=== PATIENT | male | born 1965 | race Caucasian/White ===

== ENCOUNTER → 2020-09-10 13:45 | Outpatient (BNVA) | payer OTHER, SELFPAY | PROVIDERS: Visit Provider Surgery | DX: R14.0 Abdominal distension (gaseous) (principal); R10.84 Generalized abdominal pain | CPT/HCPCS: 99202 ==

== ENCOUNTER 2020-09-22 16:56 | Outpatient (REF) | payer OTHER, SELFPAY ==
[2020-09-22 18:34] LABS: Blood Urea Nitrogen 15 mg/dL (9-16); Estimated Glomerular Filt Rate > 60
== END 2020-09-22 16:57 | disposition home or self-care (01) ==
LOC: HO.LAB 16:56
PROVIDERS: Visit Provider Surgery
DX: R10.84 Generalized abdominal pain (principal); R14.0 Abdominal distension (gaseous)
CPT/HCPCS: 36415; 82565; 84520

== ENCOUNTER 2020-09-23 10:33 | Outpatient (REF) | payer OTHER, SELFPAY ==
--- NOTE | ~2020-09-23 | CT_ITS ---
EXAMINATION: CT ABDOMEN AND PELVIS WITH CONTRAST CLINICAL INFORMATION: Abdominal pain COMPARISON: None TECHNIQUE: Multidetector volumetric images were obtained from the superior aspect of the liver through the pubic symphysis following administration 85 mL of Omnipaque 350 intravenous contrast. Sagittal and coronal reformatted images were obtained on the technologist's workstation. Oral contrast: Yes This CT examination was performed using dose optimization techniques as appropriate, variously including the following: *Automated exposure control *Adjustment of mA and/or kV according to patient size (this includes techniques or standardized protocols for targeted exams where dose is matched to indication/reason for exam; i.e. extremities or head) *Use of iterative reconstruction technique DLP: 448 mGy-cm FINDINGS: LUNG BASES: There is subsegmental atelectasis at the left lung base. LIVER, GALLBLADDER, AND BILIARY TREE: The liver is normal in size, shape and attenuation. There are gallstones in the gallbladder. Gallbladder is normal in size. There is mild intra and extrahepatic biliary duct dilatation. The common bile duct measures 1. 1.1 cm. No common bile duct stone is seen. PANCREAS: Unremarkable. SPLEEN: Unremarkable. ADRENAL GLANDS: There is a 1 cm left adrenal nodule. Accurate Hounsfield units are difficult to determine due to small size. The right adrenal gland is normal-appearing. KIDNEYS AND URETERS: There are small bilateral renal cysts. There is a 3 mm stone in the lower pole of the right kidney. BLADDER: Unremarkable. GASTROINTESTINAL TRACT: The small and large bowel are unremarkable. The appendix is unremarkable. ABDOMINAL WALL: No significant hernia is appreciated. LYMPH NODES: Normal. VASCULAR: Unremarkable. PELVIC VISCERA: Unremarkable. OSSEOUS STRUCTURES: There are postsurgical changes at L4-L5. There is multilevel degenerative disc disease. CT/CT abdomen pelvis w con IMPRESSION: Gallstones. Mild intra and extrahepatic biliary duct dilatation. Small nonobstructing right lower pole renal stone. Small bilateral renal cysts. Small left adrenal nodule.
[2020-09-23] MEDS: iohexoL 350 MG/ML 100 ML INFUS..BTL IV (14:15)
== END 2020-09-23 10:34 | disposition home or self-care (01) ==
LOC: HO.CT 10:33
PROVIDERS: Visit Provider Surgery
DX: R10.84 Generalized abdominal pain (principal); R14.0 Abdominal distension (gaseous)
CPT/HCPCS: 74177; Q9967

== ENCOUNTER → 2020-09-24 14:07 | Outpatient (BNVA) | payer OTHER, SELFPAY | PROVIDERS: Visit Provider Surgery | DX: K81.9 Cholecystitis, unspecified (principal) | CPT/HCPCS: 99212 ==

== ENCOUNTER 2020-10-02 10:43 | Outpatient (REF) | payer OTHER, SELFPAY ==
--- NOTE | ~2020-10-02 | US_ITS ---
EXAMINATION: US ABDOMEN LIMITED CLINICAL INFORMATION: Pain, gallstones and mild ductal dilatation on CT. COMPARISON: CT abdomen and pelvis with contrast 09/23/2020 TECHNIQUE: Real-time imaging of the right upper quadrant abdominal viscera. FINDINGS: PANCREAS: The pancreas is normal in size and contour and echogenicity. No pancreatic ductal distention or retroperitoneal effusion. LIVER: There is mild intrahepatic biliary ductal dilatation. The liver is normal in size and smooth in contour and parenchyma uniform in echogenicity. No focal hepatic parenchymal lesion. Doppler shows portal flow towards the liver. GALLBLADDER: Gallbladder has numerous shadowing calculi, nonmineralized on CT. The gallbladder wall is mildly thickened at 4 mm. There is no subserosal edema or visible pericholecystic fluid. Patient is tender in the gallbladder. COMMON BILE DUCT: CBD is enlarged measuring 10 mm in diameter. There are calculi noted in the distal duct overall dimensions 0.5 x 1.2 cm. RIGHT KIDNEY: Normal. No hydronephrosis. The kidney measures 10.9 cm in maximum dimension. There are several small cysts again noted, largest interpolar region 1.0 x 0.9 cm. The nonobstructing lower pole calculus noted on CT is not visualized by ultrasound with certainty. FREE FLUID: None. US/US abdomen limited IMPRESSION: 1. Cholelithiasis and choledocholithiasis with biliary ductal dilatation. 2. Mild gallbladder wall thickening. Tender gallbladder, positive sonographic Coley's sign.
== END 2020-10-02 10:44 | disposition home or self-care (01) ==
LOC: HO.US 10:43
PROVIDERS: Visit Provider Surgery
DX: K81.9 Cholecystitis, unspecified (principal)
CPT/HCPCS: 76705

== ENCOUNTER 2020-10-02 18:17 | Emergency (ER) | payer OTHER, SELFPAY ==
[2020-10-02 18:45] VITALS: BP 153/92; PULSE 69; RESP 18; TEMP 36.5; O2SAT 97; BMI 28.1
[2020-10-02 21:20] VITALS: BP 140/98; PULSE 67; RESP 18; TEMP 36.3; O2SAT 96
--- NOTE | 2020-10-02 21:28 | ED_ITS ---
HPI - Abdominal Pain General Chief Complaint: Abdominal Pain Stated Complaint: ?Gall stones Time Seen by Provider: 10/02/20 21:28 Source: patient Mode of arrival: ambulatory Limitations: no limitations History of Present Illness HPI narrative: Patient upper abdominal pain for months had ultrasound done today which showed gallstones and CBD stone severely enlarged to 10 mm patient was sent here for further evaluation and admission patient had positive Coley sign patient denies any vomiting no fever no chills refusing to stay in the hospital. Just feels belly bloated with nausea MD elicited complaint: abdominal pain Related Data Home Medications Medication Instructions Recorded Confirmed duloxetine 60 mg capsule,delayed 60 mg PO BEDTIME 09/10/20 09/24/20 release trazodone 50 mg tablet 50 mg PO BEDTIME 09/10/20 09/24/20 Allergies Allergy/AdvReac Type Severity Reaction Status Date / Time Sulfa (Sulfonamide Allergy Unknown Unverified 01/09/18 00:00 Antibiotics) sulfamethoxazole Allergy Unknown ITCHING Unverified 02/28/20 17:24 [From BACTRIM] trimethoprim [From BACTRIM] Allergy Unknown ITCHING Unverified 02/28/20 17:24 Review of Systems Review of Systems Constitutional : No Weight loss, No Fever, No Chills ENT/Mouth : No sore throat, No Rhinorrhea Eyes: No Eye Pain, No Swelling Cardiovascular : No Chest Pain, no palpitations Respiratory : No Cough, No Sputum, no shortness of breath Gastrointestinal : + Nausea, No Vomiting, No Diarrhea, + abdominal Pain, no black stools Genitourinary : No Dysuria, No Urinary Frequency Musculoskeletal : No joint pain, No Myalgias, No Joint Swelling Skin : No Skin Lesions, No rash Neuro : No Weakness, No Numbness, No Dizziness, No Headache Psych : No Anxiety/Panic, No Depression Heme/Lymph: No Bruising, No Lymphadenopathy Endocrine : No Polyuria, No Polydipsia All other systems reviewed and are negative Physical Exam Vital Signs: Vital Signs: Last Vital Signs Temp 97.4 F 10/02/20 21:20 Pulse 67 10/02/20 21:20 Resp 18 10/02/20 21:20 BP 140/98 H 10/02/20 21:20 Pulse Ox 96 10/02/20 21:20 Body Mass Index 28.1 Appearance: Alert. Oriented X3. No acute distress. Ambulatory Eyes: Pupils equal, round and reactive to light. ENT: Pharynx normal. Neck: Normal inspection. Neck supple. CVS: Normal heart rate and rhythm. Pulses normal. Respiratory: No respiratory distress. Breath sounds normal. Abdomen: Soft , tenderness right upper quadrant no rebound tenderness or guarding Bowel sounds are present, no mass palpable, no CVA tenderness Skin: Skin warm and dry. Normal skin color. Normal skin turgor. Extremities: No lower extremity edema. No calf tenderness Neuro: Oriented X 3. No motor deficit. No sensory deficit. MDM - Abdominal Pain MDM Narrative Medical decision making narrative: Patient had cholelithiasis normal WBC count slightly elevated LFTs plan was to admit for ERCP in the morning but patient left the ER after labs were done without informing the MD per nurse patient does not want to stay overnight for the procedure will come in the morning as outpatient Lab Data Attestation: I reviewed the patient's lab results. Result diagrams: 10/02/20 22:55 10/02/20 22:55 Labs: Lab Results 10/02/20 10/02/20 10/02/20 Range/Units 22:55 22:55 22:55 WBC 6.9 (4.8-10.8) X10*3/uL RBC 4.89 (4.60-5.80) X10*6/uL Hgb 14.8 (14.0-18.0) g/dl Hct 41.8 L (42-52) % MCV 85.5 (80-98) fL MCH 30.3 (27.0-33.0) pg MCHC 35.4 (31.0-36.0) g/dl RDW 13.8 (11.0-16.0) % Plt Count 200 (160-400) X10*3/uL MPV 9.6 (9.4-12.4) fL Immature Gran % (Auto) 0.1 (0.0-0.4) % Neut % (Auto) 47.5 (45-73) % Lymph % (Auto) 38.3 (20-40) % Power % (Auto) 8.0 (2-11) % Eos % (Auto) 5.4 H (0-4) % Baso % (Auto) 0.7 (0-2) % Lymph # (Auto) 2.6 (1.2-4.9) X10*3/uL Power # (Auto) 0.6 (0.1-1.2) X10*3/uL Eos # (Auto) 0.4 (0.0-0.4) X10*3/uL Baso # (Auto) 0.1 (0.0-0.2) X10*3/uL Abs Immat Gran (auto) 0.01 (0.00-0.03) X10*3/uL Absolute Neuts (auto) 3.3 (2.0-8.3) X10*3/uL Absolute Nucleated RBC 0.000 (0.0-0.012) X10*3/uL Nucleated RBC % (auto) 0.0 (0.0-0.2) /100WBC Sodium 138 (135-145) mmol/L Potassium 4.4 (3.3-5.1) mmol/L Chloride 105 (96-108) mmol/L Carbon Dioxide 25 (22-29) mmol/L Anion Gap 12 (12-20) BUN 17 H (9-16) mg/dL Creatinine 1.05 (0.5-1.4) mg/dL Estim Creat Clear Calc 84.8 Estimated GFR > 60 Random Glucose 94 (60-115) mg/dL Lactic Acid 0.7 (0.5-2.0) mmol/L Calcium 10.1 (8.4-10.2) mg/dL Total Bilirubin 0.7 (0.0-1.0) mg/dL Direct Bilirubin 0.3 (0.0-0.5) mg/dL AST 83 H (5-37) U/L ALT 132 H (0-40) U/L Alkaline Phosphatase 212 H (39-117) U/L Total Protein 7.4 (6.5-8.0) g/dL Albumin 4.0 (3.5-5.0) g/dL Lipase 14 (8-78) U/L Discharge Plan Discharge Patient Disposition: Elopement Prescriptions: No Action duloxetine 60 mg capsule,delayed release(DR/EC) 60 mg PO BEDTIME RF: 0 trazodone 50 mg tablet 50 mg PO BEDTIME RF: 0 Discharge Date/Time: 10/02/20 23:16 [facility] Past Medical History Medical History Arthritis Chronic back pain HIV (human immunodeficiency virus infection) Surgical History H/O bilateral inguinal hernia repair H/O shoulder surgery H/O umbilical hernia repair History of surgery on arm Family History Family History Mother Lung cancer Father Colon cancer Social History Social History Alcohol intake: never Smoking Status: Current every day smoker Advance Directives: No
--- NOTE | 2020-10-02 22:27 | PC.NURSE ---
pt got dressed in his street cloths and is refusing the iv and ivf. teaching not effective pt still refusing. pt states his stomach distenced and semi firm.
[2020-10-02 23:02] LABS: MANUAL DIFF FLAG NO
[2020-10-02 23:03] LABS: Basophils Absolute Auto 0.1 X10*3/uL (0.0-0.2); Basophils Percent Auto 0.7 % (0-2); Eosinophils Absolute Auto 0.4 X10*3/uL (0.0-0.4); Eosinophils Percent Auto 5.4 % (0-4); Hematocrit 41.8 % (42-52); Hemoglobin 14.8 g/dl (14.0-18.0); Imm Gran Abs Auto 0.01 X10*3/uL (0.00-0.03); Imm Gran Pct Auto 0.1 % (0.0-0.4); Lymphocytes Absolute Auto 2.6 X10*3/uL (1.2-4.9); Lymphocytes Percent Auto 38.3 % (20-40); Mean Corpuscular HGB Conc 35.4 g/dl (31.0-36.0); Mean Corpuscular Hemoglobin 30.3 pg (27.0-33.0); Mean Corpuscular Volume 85.5 fL (80-98); Mean Platelet Volume 9.6 fL (9.4-12.4); Monocytes Absolute Auto 0.6 X10*3/uL (0.1-1.2); Neutrophils Absolute Auto 3.3 X10*3/uL (2.0-8.3); Neutrophils Percent Auto 47.5 % (45-73); Platelet Count 200 X10*3/uL (160-400); Red Blood Count 4.89 X10*6/uL (4.60-5.80); Red Cell Distribution Width 13.8 % (11.0-16.0); White Blood Count 6.9 X10*3/uL (4.8-10.8)
--- NOTE | 2020-10-02 23:12 | PC.NURSE ---
pt is very figity, puts his street clothing on. pt states he is not going to stay, pt states he thought he was going to have a procedure done per his doctor. pt witness left on his own steady gait. tried to have the pt wait till his labs and refused, dr khan made aware. pt has been up and down in the bed cant sit still. pt restless.
[2020-10-02 23:20] LABS: Lactic Acid 0.7 mmol/L (0.5-2.0)
[2020-10-02 23:27] LABS: Alanine Aminotransferase 132 U/L (0-40); Alkaline Phosphatase 212 U/L (39-117); Anion Gap 12 (12-20); Aspartate Amino Transferase 83 U/L (5-37); Bilirubin Direct 0.3 mg/dL (0.0-0.5); Bilirubin Total 0.7 mg/dL (0.0-1.0); Blood Urea Nitrogen 17 mg/dL (9-16); Calcium 10.1 mg/dL (8.4-10.2); Carbon Dioxide 25 mmol/L (22-29); Chloride 105 mmol/L (96-108); Creatinine Clr Calc Pharmacy 84.8; Estimated Glomerular Filt Rate > 60; Glucose Random 94 mg/dL (60-115); Lipase 14 U/L (8-78); Potassium 4.4 mmol/L (3.3-5.1); Sodium 138 mmol/L (135-145); Total Protein 7.4 g/dL (6.5-8.0)
[2020-10-02 23:42] LABS: Partial Thromboplastin Time 36.1 SEC (24.1-38.0)
== END 2020-10-02 23:16 | disposition left against medical advice (07) ==
PROVIDERS: Internal Medicine; Emergency Provider Emergency Medicine
DX: K80.63 Calculus of gallbladder and bile duct with acute cholecystitis with obstruction (principal)
CPT/HCPCS: 36415; 80048; 80076; 83605; 83690; 85025; 85610; 85730; 87040; 96360; 99284; 99285

== ENCOUNTER 2020-10-03 11:26 | Inpatient (IN) | payer OTHER, SELFPAY ==
[2020-10-03 11:43] VITALS: BP 139/84; PULSE 80; RESP 16; TEMP 36.8; O2SAT 97; BMI 26.6
--- NOTE | 2020-10-03 12:03 | ECG_ITS ---
Test Reason : ABDOMINAL PAIN Blood Pressure : / mmHG Vent. Rate : 067 BPM Atrial Rate : 067 BPM P-R Int : 154 ms QRS Dur : 096 ms QT Int : 416 ms P-R-T Axes : 047 060 050 degrees QTc Int : 439 ms Normal sinus rhythm Normal ECG No previous ECGs available Referred By: Natalia Cordova Electronically Signed By:JAYCEE BASSETT MD
--- NOTE | 2020-10-03 12:18 | ED_ITS ---
HPI - Abdominal Pain General Chief Complaint: Abdominal Pain Stated Complaint: CBD STONE Time Seen by Provider: 10/03/20 12:02 Source: patient and family Mode of arrival: ambulatory Limitations: no limitations History of Present Illness HPI narrative: 54 y/o male with history of migraines, active smoker, chronic ros k pain s/p fusions, who presents with 3 month history of worsening right upper quadrant pain and abdominal distention. He had an outpatient CT scan on 09/23 which showed gallstones w/ mild intra & extrahepatic biliary duct dilatation. He was called and told to come to the ER for a procedure and was under the impression he would be discharged same day. When he came to the ED yesterday 10/02, US showed gallbladder thickening with cholelithiasis and choledocholithiasis w/ biliary ductal dilatation, CBD measuring 10mm, distal duct stone measuring 0.5 x1.2 cm. He had no fever or leukocytosis. He eloped the ER yesterday because he was not prepared to stay. He comes back with his today with worsening pain and distention. He is unable to sit down and is pacing due to the pain. He admits to subjective fevers at home with episodic diaphoresis. No vomiting but mild nausea. Last good BM 2-3 days ago. MD elicited complaint: abdominal pain Pertinent past history: none Onset (ago): month(s) (3) Pain Consistency: constant Location: RUQ Severity: severe Quality: stabbing and aching Radiation: RLQ Migration to: no migration Exacerbating factors: eating Relieving factors: nothing Associated symptoms: nausea and constipation Related Data Home Medications Medication Instructions Recorded Confirmed duloxetine 60 mg capsule,delayed 60 mg PO BEDTIME 09/10/20 09/24/20 release trazodone 50 mg tablet 50 mg PO BEDTIME 09/10/20 09/24/20 Allergies Allergy/AdvReac Type Severity Reaction Status Date / Time Sulfa (Sulfonamide Allergy Unknown Unverified 01/09/18 00:00 Antibiotics) sulfamethoxazole Allergy Unknown ITCHING Unverified 02/28/20 17:24 [From BACTRIM] trimethoprim [From BACTRIM] Allergy Unknown ITCHING Unverified 02/28/20 17:24 Review of Systems Review of Systems Constitutional: + Fever, No Chills Cardiovascular: No Chest Pain, No SOB, No Orthopnea, No Edema Respiratory: No Cough, No Sputum, No Wheezing, No dyspnea Gastrointestinal: + Nausea, No Vomiting, No Diarrhea, + abdominal Pain, No Hematochezia, No Melena Genitourinary: No Dysuria, No Urinary Frequency, No Hematuria Musculoskeletal: No joint pain, No Myalgias Skin: No Skin Lesions, No rash Neuro: No Weakness, No Numbness, No Dizziness, No Headache Psych: No Anxiety/Panic, No Depression Heme/Lymph: No Bruising, No Lymphadenopathy Endocrine: No Polyuria, No Polydipsia Physical Exam Vital Signs: Vital Signs: Last Vital Signs Temp 98.2 F 10/03/20 15:39 Pulse 60 10/03/20 15:39 Resp 18 10/03/20 15:39 BP 136/86 10/03/20 15:39 Pulse Ox 95 10/03/20 15:39 Body Mass Index 26.6 Appearance: Alert. Oriented X3. No acute distress. Eyes: Pupils equal, round and reactive to light. ENT: Pharynx normal. Neck: Normal inspection. Neck supple. CVS: Normal heart rate and rhythm. Pulses normal. Respiratory: No respiratory distress. Breath sounds normal. Abdomen: distended, somewhat firm with +RUQ tenderness with rebound and guarding, hypoactive bowel sounds x4 Skin: Skin warm and dry. Normal skin color. Normal skin turgor. No rashes. Extremities: No lower extremity edema. Neuro: Oriented X 3. No motor deficit. No sensory deficit. Limping gait due to pain Course Course Course Narrative: 54 y/o male presenting with cholecysitis with choledocholithia sis. Afebrile and hemodynamically stable on arrival. Will repeat labs from yesterday to trend, give Zosyn, IVF and dilaudid for pain. Not septic at this time. GI and Surgery paged on arrival. Reevaluation(s) Reevaluation #1: Pain improved with dilaudid. No leukocytosis. LFTs trending up but bilirubins remain normal. No evidence of cholangitis at this time. Cultures sent. Will hold off on repeat U/S. Spoke with GI and Surgery - recommending ERCP and admission to medicine team. TT medicine who will admit. Reevaluation #2: Medicine to admit Consultations Consultation #1: General Surgery - Dr. Oneill - recommending cholecystectomy after stone removed, residual stones in gallbladder, doubts acute cholecystitis, wall thickening due to stone Consultation #2: GI - Dr. Chang - recommending non-emergent ERCP for stone removal/stent MDM - Abdominal Pain Lab Data Attestation: I reviewed the patient's lab results. Result diagrams: 10/03/20 13:02 10/03/20 13:02 Labs: Lab Results 10/03/20 10/03/20 10/03/20 Range/Units 13:02 13:02 13:02 WBC 7.5 (4.8-10.8) X10*3/uL RBC 4.80 (4.60-5.80) X10*6/uL Hgb 14.5 (14.0-18.0) g/dl Hct 41.2 L (42-52) % MCV 85.8 (80-98) fL MCH 30.2 (27.0-33.0) pg MCHC 35.2 (31.0-36.0) g/dl RDW 13.8 (11.0-16.0) % Plt Count 220 (160-400) X10*3/uL MPV 9.5 (9.4-12.4) fL Immature Gran % (Auto) 0.3 (0.0-0.4) % Neut % (Auto) 75.9 H (45-73) % Lymph % (Auto) 16.6 L (20-40) % [place] % (Auto) 5.1 (2-11) % Eos % (Auto) 1.6 (0-4) % Baso % (Auto) 0.5 (0-2) % Lymph # (Auto) 1.2 (1.2-4.9) X10*3/uL [place] # (Auto) 0.4 (0.1-1.2) X10*3/uL Eos # (Auto) 0.1 (0.0-0.4) X10*3/uL Baso # (Auto) 0.0 (0.0-0.2) X10*3/uL Abs Immat Gran (auto) 0.02 (0.00-0.03) X10*3/uL Absolute Neuts (auto) 5.7 (2.0-8.3) X10*3/uL Absolute Nucleated RBC 0.000 (0.0-0.012) X10*3/uL Nucleated RBC % (auto) 0.0 (0.0-0.2) /100WBC PT 12.5 (10.8-13.0) SEC INR 1.1 (0.9-1.1) APTT 35.7 (24.1-38.0) SEC Sodium 136 (135-145) mmol/L Potassium 4.4 (3.3-5.1) mmol/L Chloride 103 (96-108) mmol/L Carbon Dioxide 24 (22-29) mmol/L Anion Gap 13 (12-20) BUN 19 H (9-16) mg/dL Creatinine 0.94 (0.5-1.4) mg/dL Estim Creat Clear Calc 86.9 Estimated GFR > 60 Random Glucose 115 (60-115) mg/dL Lactic Acid (0.5-2.0) mmol/L Calcium 10.3 H (8.4-10.2) mg/dL Magnesium 2.1 (1.6-2.6) mg/dL Total Bilirubin 1.0 (0.0-1.0) mg/dL Direct Bilirubin 0.3 (0.0-0.5) mg/dL AST 98 H (5-37) U/L ALT 147 H (0-40) U/L Alkaline Phosphatase 250 H (39-117) U/L Total Protein 7.7 (6.5-8.0) g/dL Albumin 4.1 (3.5-5.0) g/dL Lipase 11 (8-78) U/L COVID-19 ([facility]) (Negative) COVID-19 Clin Com 10/03/20 10/03/20 Range/Units 13:02 13:02 WBC (4.8-10.8) X10*3/uL RBC (4.60-5.80) X10*6/uL Hgb (14.0-18.0) g/dl Hct (42-52) % MCV (80-98) fL MCH (27.0-33.0) pg MCHC (31.0-36.0) g/dl RDW (11.0-16.0) % Plt Count (160-400) X10*3/uL MPV (9.4-12.4) fL Immature Gran % (Auto) (0.0-0.4) % Neut % (Auto) (45-73) % Lymph % (Auto) (20-40) % [place] % (Auto) (2-11) % Eos % (Auto) (0-4) % Baso % (Auto) (0-2) % Lymph # (Auto) (1.2-4.9) X10*3/uL [place] # (Auto) (0.1-1.2) X10*3/uL Eos # (Auto) (0.0-0.4) X10*3/uL Baso # (Auto) (0.0-0.2) X10*3/uL Abs Immat Gran (auto) (0.00-0.03) X10*3/uL Absolute Neuts (auto) (2.0-8.3) X10*3/uL Absolute Nucleated RBC (0.0-0.012) X10*3/uL Nucleated RBC % (auto) (0.0-0.2) /100WBC PT (10.8-13.0) SEC INR (0.9-1.1) APTT (24.1-38.0) SEC Sodium (135-145) mmol/L Potassium (3.3-5.1) mmol/L Chloride (96-108) mmol/L Carbon Dioxide (22-29) mmol/L Anion Gap (12-20) BUN (9-16) mg/dL Creatinine (0.5-1.4) mg/dL Estim Creat Clear Calc Estimated GFR Random Glucose (60-115) mg/dL Lactic Acid 0.8 (0.5-2.0) mmol/L Calcium (8.4-10.2) mg/dL Magnesium (1.6-2.6) mg/dL Total Bilirubin (0.0-1.0) mg/dL Direct Bilirubin (0.0-0.5) mg/dL AST (5-37) U/L ALT (0-40) U/L Alkaline Phosphatase (39-117) U/L Total Protein (6.5-8.0) g/dL Albumin (3.5-5.0) g/dL Lipase (8-78) U/L COVID-19 ([facility]) Negative (Negative) COVID-19 Clin Com See Note ECG Data Attestation: I personally reviewed and interpreted this ECG as follows: ECG interpretation date: 10/03/20 ECG interpretation time: 14:00 Interpretation: normal sinus rhythm, HR 67 bpm, normal IN interval, normal QTc, No ST segment elevations or depressions Discharge Plan Discharge Clinical Impression: Choledocholithiasis with acute cholecystitis Patient Disposition: Admitted As Inpatient [facility] Past Medical History Attestation statement: The following information was validated with the patient. Medical History Arthritis Chronic back pain HIV (human immunodeficiency virus infection) Surgical History H/O bilateral inguinal hernia repair H/O shoulder surgery H/O umbilical hernia repair History of surgery on arm Family History Family History Mother Lung cancer Father Colon cancer Social History Social History Alcohol intake: never Smoking Status: Current every day smoker Advance Directives: Yes Advance Directives Information Provided: No Advance Directives on File: No
[2020-10-03] MEDS: HYDROmorphone HCl 0.5 MG/0.5 ML SYRINGE IVPUSH ×2 (13:18→19:11)
[2020-10-03] MEDS: Piperacillin Sodium/Tazobactam 3.375 GM in 0.9 % Sodium Chloride 50 ML IV (13:18)
[2020-10-03] MEDS: 0.9 % Sodium Chloride 1,000 ML 999 ML IVCONT (13:19)
[2020-10-03 13:40] LABS: MANUAL DIFF FLAG NO
[2020-10-03 13:42] LABS: Basophils Percent Auto 0.5 % (0-2); Eosinophils Absolute Auto 0.1 X10*3/uL (0.0-0.4); Eosinophils Percent Auto 1.6 % (0-4); Hematocrit 41.2 % (42-52); Hemoglobin 14.5 g/dl (14.0-18.0); Imm Gran Abs Auto 0.02 X10*3/uL (0.00-0.03); Imm Gran Pct Auto 0.3 % (0.0-0.4); Lymphocytes Absolute Auto 1.2 X10*3/uL (1.2-4.9); Lymphocytes Percent Auto 16.6 % (20-40); Mean Corpuscular HGB Conc 35.2 g/dl (31.0-36.0); Mean Corpuscular Hemoglobin 30.2 pg (27.0-33.0); Mean Corpuscular Volume 85.8 fL (80-98); Mean Platelet Volume 9.5 fL (9.4-12.4); Monocytes Absolute Auto 0.4 X10*3/uL (0.1-1.2); Monocytes Percent Auto 5.1 % (2-11); Neutrophils Absolute Auto 5.7 X10*3/uL (2.0-8.3); Neutrophils Percent Auto 75.9 % (45-73); Platelet Count 220 X10*3/uL (160-400); Red Cell Distribution Width 13.8 % (11.0-16.0); White Blood Count 7.5 X10*3/uL (4.8-10.8)
[2020-10-03 13:48] LABS: INTERNATIONAL NORM RATIO 1.1 (0.9-1.1); Prothrombin Time 12.5 SEC (10.8-13.0)
[2020-10-03 13:49] LABS: COVID-19 Test Negative (Negative)
[2020-10-03 13:51] LABS: Partial Thromboplastin Time 35.7 SEC (24.1-38.0)
[2020-10-03 13:56] LABS: Lactic Acid 0.8 mmol/L (0.5-2.0)
[2020-10-03 14:14] LABS: Alanine Aminotransferase 147 U/L (0-40); Albumin Level 4.1 g/dL (3.5-5.0); Alkaline Phosphatase 250 U/L (39-117); Anion Gap 13 (12-20); Aspartate Amino Transferase 98 U/L (5-37); Bilirubin Direct 0.3 mg/dL (0.0-0.5); Blood Urea Nitrogen 19 mg/dL (9-16); Calcium 10.3 mg/dL (8.4-10.2); Carbon Dioxide 24 mmol/L (22-29); Chloride 103 mmol/L (96-108); Creatinine Clr Calc Pharmacy 86.9; Estimated Glomerular Filt Rate > 60; Glucose Random 115 mg/dL (60-115); Magnesium 2.1 mg/dL (1.6-2.6); Potassium 4.4 mmol/L (3.3-5.1); Sodium 136 mmol/L (135-145); Total Protein 7.7 g/dL (6.5-8.0)
[2020-10-03 14:27] LABS: Lipase 11 U/L (8-78)
[2020-10-03 15:39] VITALS: BP 136/86; PULSE 60; RESP 18; TEMP 36.8; O2SAT 95
[2020-10-03 16:42] LABS: Glucose Urine UA NEG (NEG); Leukocyte Esterase Urine NEG (NEG); Nitrite Urine NEG (NEG); PH 6.5 (5.0-8.0); Specific Gravity - Urine 1.015 (1.005-1.025); Urine Blood NEG (NEG); Urine Ketones NEG (NEG); Urine Protein NEG (NEG-TRACE)
[2020-10-03 16:43] LABS: Appearance Urine CLEAR; Color Urine YELLOW
--- NOTE | 2020-10-03 16:49 | P.CONGS_ITS ---
History of Present Illness Consult details Consult date: 10/03/20 Reason for consult: gallstones Requesting physician: Natalia Cordova Narrative: This is a 54-year-old gentleman with a history of chronic back pain status post lumbar fusion and bilateral sciatica who has been having abdominal distention and bloating for the past 3-6 months. He reports the pain and discomfort got worse over the past month. Patient called the general surgeon's office here at [facility] where he had a bilateral inguinal hernia repair years ago with Dr. Kirkpatrick. Patient thought he had a problem with his hernia and was sent to see Dr. Dempsey regarding his abdominal bloating. Patient was scheduled for a CT scan abdomen and pelvis which she had about a week ago which showed several gallstones. The patient was then scheduled for a ultrasound of the gallbladder which was performed within the past week and then he got a call yesterday from the general surgeon office that he needed to come to the emergency department because he had stones in his bile duct. Patient reports he occasionally will have a pressure in the right upper quadrant and sometimes a sharp discomfort that is intermittent. He denies any association with anything in particular that causes this discomfort. Patient denies nausea or vomiting but reports some evidence of anorexia recently. He has also had constipation associated with this. I have reviewed the patient's CT scan abdomen pelvis and the ultrasound of the right upper quadrant. The ultrasound showed mild intrahepatic duct dilation as well as the common bile duct that was dilated with at least a few stones in the common bile duct. There were multiple small stones within the gallbladder a relatively normal gallbladder wall without any evidence of pericholecystic fluid. Patient had blood work when he came to the emergency department last night that showed a slightly elevated AST and ALT with normal bilirubins. Patient also had a normal white blood cell count. The patient left the emergency department AMA when he found out that he was going to be admitted for likely ERCP. Patient came back to the emergency department today when he had worsening abdominal discomfort. He had repeat laboratory values today that were relatively the same as last evening laboratory values. A consultation was obtained from Gastroenterology in the plan is to perform an ERCP likely tomorrow given that the patient does not have any signs or symptoms of cholangitis. I was consulted regarding multiple stones in the gallbladder. Patient does not have any symptoms of cholecystitis and there is no evidence of cholecystitis on any of the studies that were done. Patient currently denies any abdominal pain and really complains more of back pain and bilateral sciatica as well as hip pain. He denies any fever, chills. He does report that he has some limitation of taking a deep breath as his abdomen is distended. Patient denies chest pain. Review of Systems Review of Systems: Yes all other systems are reviewed and are negative Constitutional: Constitutional: Denies chills, Denies daytime sleepiness, Denies difficulty sleeping, Denies excessive sweating, Reports fatigue, Denies fever(s), Denies headache(s), Reports night sweats, Denies snoring, Denies stops breathing during sleep and Denies weakness Eyes: Eyes: Denies blurry vision, Denies other visual disturbances and Denies requires corrective lenses ENT: Denies bleeding gums, Denies dysphagia, Denies dizziness, Denies headache(s), Denies hearing loss, Denies sinus pain and Denies sore throat Cardiovascular: Cardiovascular: Denies chest pain, Denies chest pain at rest, Denies chest pain with activity, Denies syncope, Denies irregular heart rhythm, Denies leg edema, Denies lightheadedness, Reports dyspnea, Reports dyspnea on exertion and Denies orthopnea Respiratory: Respiratory: Denies chest congestion, Denies cough, Reports dyspnea, Reports dyspnea on exertion, Denies snoring and Denies wheezing Gastrointestinal: Gastrointestinal: Denies abdominal pain, Denies melena, Rep orts bloating, Reports constipation, Denies dysphagia, Reports early satiety, Denies heartburn, Denies diarrhea, Denies nausea and Denies vomiting Genitourinary: Genitourinary: Denies hematuria, Denies difficulty urinating and Denies nocturia Musculoskeletal: Musculoskeletal: Denies abnormal gait, Reports back pain, Denies deformity, Reports arthralgias, Denies joint swelling, Reports radiating pain into limb (Bilateral lower extremity sciatica) and Reports stiffness Integumentary/Breasts: Skin/Breast: Denies breast pain, Denies breast mass and Denies nipple discharge Neurologic: Denies abnormal gait, Denies dizziness, Denies syncope, Denies headache(s), Denies seizure-like activity and Denies weakness Psychiatric: Psychiatric: Denies abnormal sleep pattern, Denies anxiety, Denies depression and Denies panic attacks Endocrine: Endocrine: Denies excessive sweating, Reports fatigue, Denies heat intolerance, Denies polyphagia, Denies polydipsia and Denies polyuria Hematologic/Lymphatic: Hematologic/Lymphatic: Denies easy bleeding and Denies easy bruising Allergic/Immunologic: Allergic/Immunologic: Denies wheezing PMFSH Past Medical History Medical History (Updated 10/03/20 @ 17:00 by Yolette Oneill MD) Anxiety Arthritis Chronic back pain HIV (human immunodeficiency virus infection) Insomnia Sciatica Family History Family History Mother Lung cancer Father Colon cancer Brother No problems noted. Surgical History Surgical History H/O bilateral inguinal hernia repair H/O shoulder surgery H/O umbilical hernia repair History of lumbar fusion History of surgery on arm Social History Social History (Updated 10/03/20 @ 17:01 by Yolette Oneill MD) Alcohol intake: never Smoking Status: Current every day smoker Packs Per Day: 0.5 Years Smoked: 35 Use of substances other than those prescribed or required for medical reasons: Yes Substance Use Type: Marijuana Substance Use Type Other:: Smokes marijuana and uses edibles Substance Use Frequency: Daily Advance Directives: Yes Advance Directives Information Provided: No Advance Directives on File: No Meds Allergies Allergy/AdvReac Type Severity Reaction Status Date / Time Sulfa (Sulfonamide Allergy Unknown Itching Unverified 10/03/20 17:02 Antibiotics) sulfamethoxazole Allergy Unknown ITCHING Unverified 10/03/20 17:02 [From BACTRIM] trimethoprim [From BACTRIM] Allergy Unknown ITCHING Unverified 10/03/20 17:02 Home Medications Medication Instructions Recorded Confirmed Last Taken Type duloxetine 60 mg capsule,delayed 60 mg PO BEDTIME 09/10/20 09/24/20 Unknown History release trazodone 50 mg tablet 50 mg PO BEDTIME 09/10/20 09/24/20 Unknown History Physical Exam Vital Signs: Vital Signs: Last Vital Signs Temp 98.2 F 10/03/20 15:39 Pulse 60 10/03/20 15:39 Resp 18 10/03/20 15:39 BP 136/86 10/03/20 15:39 Pulse Ox 95 10/03/20 15:39 Body Mass Index 26.6 Const: General: cooperative, healthy appearing, comfortable and no acute distress Orientation/consciousness: patient oriented x3 HENMT: Head: Yes normal to inspection, Yes normocephalic and Yes atraumatic Ears: hearing grossly normal bilaterally Mouth: Normal oral and palatal mucosa present Throat: Yes posterior oropharynx normal Eyes: General: appearance normal, both eyes and all related structures Sclerae: sclerae normal EOM: EOMs intact bilaterally Neck: Neck: Yes normal visual inspection, Yes full ROM, Yes no lymphadenopathy and Yes trachea midline Thyroid: Thyroid normal Resp: Effort & Inspection: normal respiratory effort, no audible wheezes and no cough Auscultation: clear to auscultation bilaterally Cardio: Heart sounds: S1 normal heart sound present, S2 normal heart sound present, no click, no gallops and no murmurs GI: Inspection: Yes normal to inspection, No Abdominal wall edema and Yes dist ended (Softly) Palpation (GI): Soft to palpation, nontender, no guarding and not rigid Neuro: General: patient oriented x3 Cranial nerves: Yes CN's II-XII intact bilaterally Extrem: General: Yes normal to inspection, Yes full ROM, Yes no clubbing, cyanosis or edema and Yes no calf tenderness Psych: Appearance: grossly normal Mental Status: mental status grossly normal Results Labs Result diagrams: 10/03/20 13:02 10/03/20 13:02 Labs: Abnormal lab results 10/03/20 10/03/20 Range/Units 13:02 13:02 Hct 41.2 L (42-52) % Neut % (Auto) 75.9 H (45-73) % Lymph % (Auto) 16.6 L (20-40) % BUN 19 H (9-16) mg/dL Calcium 10.3 H (8.4-10.2) mg/dL AST 98 H (5-37) U/L ALT 147 H (0-40) U/L Alkaline Phosphatase 250 H (39-117) U/L Short CBC 10/03/20 Range/Units 13:02 WBC 7.5 (4.8-10.8) X10*3/uL Hgb 14.5 (14.0-18.0) g/dl Hct 41.2 L (42-52) % Plt Count 220 (160-400) X10*3/uL [facility] 10/03/20 13:02 Sodium 136 Potassium 4.4 Chloride 103 Carbon Dioxide 24 BUN 19 H Creatinine 0.94 Calcium 10.3 H Liver Function 10/03/20 Range/Units 13:02 Total Bilirubin 1.0 (0.0-1.0) mg/dL Direct Bilirubin 0.3 (0.0-0.5) mg/dL AST 98 H (5-37) U/L ALT 147 H (0-40) U/L Alkaline Phosphatase 250 H (39-117) U/L Albumin 4.1 (3.5-5.0) g/dL Urine 10/03/20 Range/Units 16:33 Urine Color YELLOW Urine Appearance CLEAR Urine pH 6.5 (5.0-8.0) Ur Specific [place] 1.015 (1.005-1.025) Urine Protein NEG (NEG-TRACE) MG/DL Urine Glucose (UA) NEG (NEG) MG/DL All other labs normal. CT scan abdomen and pelvis: CT/CT abdomen pelvis w con IMPRESSION: Gallstones. Mild intra and extrahepatic biliary duct dilatation. Small nonobstructing right lower pole renal stone. Small bilateral renal cysts. Small left adrenal nodule. Dictated By:RENO CARRERA MDSigned By:<Electronically signed by RENO CARRERA MD in OV>09/23/20 1428 Right upper quadrant ultrasound IMPRESSION: 1. Cholelithiasis and choledocholithiasis with biliary ductal dilatation. 2. Mild gallbladder wall thickening. Tender gallbladder, positive sonographic Coley's sign. Dictated By:GUEVARA HUITRON MDSigned By:<Electronically signed by GUEVARA HUITRON MD in OV> Assessment and Plan (1) Cholelithiasis: Status: Acute (2) Choledocholithiasis: Status: Acute This is a 54-year-old gentleman who has multiple gallstones within the gallbladder and now evidence of choledocholithiasis causing intra and extrahepatic duct dilation. Patient does not have any symptoms of cholangitis at this time and bilirubins remain normal. Patient also has a normal white blood cell count. Given the choledocholithiasis seen on CT scan of the abdomen and pelvis and the ultrasound the right upper quadrant patient will be admitted to the Medicine Service and there will be a plan for ERCP to clear the common bile duct. I will plan to perform a laparoscopic cholecystectomy following clearance of the common bile duct by the police patrol officer. I discussed this w ith the patient and he agrees to proceed with laparoscopic cholecystectomy. I spent about 60 minutes with this patient performing the history and physical examination reviewing both the ultrasound and CAT scan and all laboratory values and documenting.
--- NOTE | 2020-10-03 17:05 | PM.IMHP ---
History of Present Illness Date of Service: 10/03/20 Chief Complaint: Abdominal pain 54-year-old male with history of abdominal pain and has been evaluated by surgery on outpatient basis on around September [address] Dempsey in the office a CAT scan of the abdomen was performed at a time and I thought that the patient had a biliary disease and an ultrasound was subsequently arranged. Patient had ultrasound done on October 02 which showed a dilated common bile duct and the finding consistent with acute choledocholithiasis, and report of posiitive Coley but has no fever, no increase in WBC. He was advised admission however he left AMA. Only to come back today with increasing abdominal pain that is moderate to severe, generally in region of RUQ . He does not have fever or chill no signs of cholangitis. He had he has been admitted for further evaluation including the need for ERCP and probable cholecystectomy. He is nontoxic at this time Review of Systems Review of Systems: Gen: no fever Resp: no sob, no cough CV: no chest, no BARAJAS, no leg edema GI: No n/v, no abd pain Neuro: No confusion [facility] Medical History Anxiety Arthritis Chronic back pain HIV (human immunodeficiency virus infection) Insomnia Sciatica Family History Mother Lung cancer Father Colon cancer Brother No problems noted. Surgical History H/O bilateral inguinal hernia repair H/O shoulder surgery H/O umbilical hernia repair History of lumbar fusion History of surgery on arm Social History Household Members: Significant Other Housing: House Do you presently have visiting nurse or other home services: No Alcohol intake: never Smoking Status: Current every day smoker Tobacco Type: Cigarette Packs Per Day: 0.5 Years Smoked: 35 Smoked in Last 30 Days: Yes Patient Interested in Nicotine Replacement: No Patient Given Instructions on How to Stop Smoking: Yes Date Education Initiated: 10/03/20 Second Hand Smoke Exposure: No Use of substances other than those prescribed or required for medical reasons: No Substance Use Type: Marijuana Substance Use Type Other:: Smokes marijuana and uses edibles Substance Use Frequency: Daily Currently Displaying Signs/Symptoms of Drug Intoxication Withdrawal: No Have you been hit, kicked, punched, or otherwise hurt by someone within the past year? If so, by whom?: No Do you feel safe in your current relationship?: Yes Is there a partner from a previous relationship who is making you feel unsafe now?: No Are you made to feel afraid or neglected: No Advance Directives: Yes Advance Directives Information Provided: No Advance Directives on File: No Advance Directives Date on File: 10/03/20 Do you have thoughts of harming others: None Do you have a plan to hurt others: No Plan Recently lost weight without trying: No Meds Allergies Allergy/AdvReac Type Severity Reaction Status Date / Time Sulfa (Sulfonamide Allergy Unknown Itching Unverified 10/03/20 17:02 Antibiotics) sulfamethoxazole Allergy Unknown ITCHING Unverified 10/03/20 17:02 [From BACTRIM] trimethoprim [From BACTRIM] Allergy Unknown ITCHING Unverified 10/03/20 17:02 Active Medications: Current Medications Generic Name Dose Route Start Last Admin Trade Name Freq PRN Reason Stop Dose Admin Enoxaparin Sodium 40 mg 10/03/20 17:00 Enoxaparin Sodium 40 Mg/0.4 Ml Syringe SUBCUT Q24H [facility] Sodium Chloride 3 ml 10/04/20 00:00 0.9 % Sodium Chloride Flush 3 Ml Syringe IVFLUSH QSHIFT [facility] Home Medications Medication Instructions Recorded Confirmed Last Taken Type duloxetine 60 mg capsule,delayed 60 mg PO BEDTIME 09/10/20 10/03/20 Unknown History release Physical Exam Vital Signs and Narrative: Vital Signs: Last Vital Signs Temp 98.2 F 10/03/20 15:39 Pulse 60 10/03/20 15:39 Resp 18 10/03/20 15:39 BP 136/86 10/03/20 15:39 Pulse Ox 95 10/03/20 15:39 Body Mass Index 26.6 Constitutional Awake and Alert, No apparent distress Neck Supple, No lymphadenopathy Cardiovascular RRR, No M/R/G, S1 S2, No S3 S4, No pedal edema Respiratory Lungs clear, No respiratory distress Gastrointestinal Non tender, Non-distended Skin No rash Neurological Alert & oriented x3 Psychological Appropriate affect Results Labs CBC and Chem 7: 10/03/20 13:02 10/03/20 13:02 Labs: Laboratory Results - last 24 hr 10/03/20 10/03/20 10/03/20 13:02 13:02 13:02 MCV 85.8 MCH 30.2 MCHC 35.2 RDW 13.8 Plt Count 220 MPV 9.5 Immature Gran % (Auto) 0.3 Neut % (Auto) 75.9 H Lymph % (Auto) 16.6 L Leslie % (Auto) 5.1 Eos % (Auto) 1.6 Baso % (Auto) 0.5 Lymph # (Auto) 1.2 Leslie # (Auto) 0.4 Eos # (Auto) 0.1 Baso # (Auto) 0.0 Abs Immat Gran (auto) 0.02 Absolute Neuts (auto) 5.7 Absolute Nucleated RBC 0.000 Nucleated RBC % (auto) 0.0 PT 12.5 INR 1.1 APTT 35.7 Anion Gap 13 Estim Creat Clear Calc 86.9 Estimated GFR > 60 Random Glucose 115 Lactic Acid Calcium 10.3 H Magnesium 2.1 Total Bilirubin 1.0 Direct Bilirubin 0.3 AST 98 H ALT 147 H Alkaline Phosphatase 250 H Total Protein 7.7 Albumin 4.1 Lipase 11 Urine Color Urine Appearance Urine pH Ur Specific [place] Urine Protein Urine Glucose (UA) Urine Ketones Urine Blood Urine Nitrite Ur Leukocyte Esterase COVID-19 ([facility]) COVID-19 Clin Com 10/03/20 10/03/20 10/03/20 13:02 13:02 16:33 MCV MCH MCHC RDW Plt Count MPV Immature Gran % (Auto) Neut % (Auto) Lymph % (Auto) Leslie % (Auto) Eos % (Auto) Baso % (Auto) Lymph # (Auto) Leslie # (Auto) Eos # (Auto) Baso # (Auto) Abs Immat Gran (auto) Absolute Neuts (auto) Absolute Nucleated RBC Nucleated RBC % (auto) PT INR APTT Anion Gap Estim Creat Clear Calc Estimated GFR Random Glucose Lactic Acid 0.8 Calcium Magnesium Total Bilirubin Direct Bilirubin AST ALT Alkaline Phosphatase Total Protein Albumin Lipase Urine Color YELLOW Urine Appearance CLEAR Urine pH 6.5 Ur Specific [place] 1.015 Urine Protein NEG Urine Glucose (UA) NEG Urine Ketones NEG Urine Blood NEG Urine Nitrite NEG Ur Leukocyte Esterase NEG COVID-19 ([facility]) Negative COVID-19 Clin Com See Note Assessment and Plan (1) Diffuse abdominal pain: Status: Acute (2) Choledocholithiasis: Status: Acute 54-year-old male with acute choledocholithiasis, and no clinical evidence of acute cholecystitis of cholangitis -Surgery and GI consult for probably ERCP and Cholelithiasis -Morphine for pain -Empric Levaquin -IVF
[2020-10-03 17:43] VITALS: BP 136/88; PULSE 58; RESP 16; O2SAT 94
[2020-10-03] MEDS: Enoxaparin Sodium 40 MG/0.4 ML SYRINGE SUBCUT (17:45)
[2020-10-03] MEDS: Dextrose 5 % and 0.45 % NaCl 1,000 ML 100 ML IVCONT (17:46)
[2020-10-03] MEDS: Nicotine 14 MG PATCH.TD24 TRANSDERMA (19:11)
--- NOTE | 2020-10-03 19:24 | PC.NURSE ---
PT AWAITING ROOM ASSIGNMENT. PT ALERT AND SITTING UP IN CHAIR C/O PAIN TO ABD AREA. PA AWARE AND PT MEDICATED WITH PAIN MEDS PER [facility]. PT ALSO REQUESTING NICOTINE PATCH. APPLIED PATCH TO RIGHT ARM. PT C/O NOT BEING ABLE TO EAT AT THIS TIME. WILL CONTINUE TO MONITOR PT.
--- NOTE | 2020-10-03 21:34 | PC.NURSE ---
floor unable to take report, will return call.
--- NOTE | 2020-10-03 21:52 | PC.NURSE ---
report to floor, pt to floor on stretcher.
[2020-10-03 22:07] VITALS: BP 185/90; PULSE 56; RESP 20; TEMP 36.1; O2SAT 98
[2020-10-03 23:31] VITALS: BP 144/89; PULSE 54; RESP 18; TEMP 36.3; O2SAT 97
[2020-10-04] MEDS: 0.9 % Sodium Chloride Flush 3 ML SYRINGE IVFLUSH (00:41)
[2020-10-04 03:46] VITALS: BP 170/108; PULSE 53; RESP 16; TEMP 36.7; O2SAT 96
[2020-10-04] MEDS: Dextrose 5 % and 0.45 % NaCl 1,000 ML 100 ML IVCONT (04:20)
[2020-10-04] MEDS: levoFLOXacin/D5W 750 MG/150 ML PIGGYBACK 100 MG IV (07:29)
[2020-10-04 07:44] VITALS: BP 181/91; PULSE 71; RESP 18; TEMP 36.1; O2SAT 96
--- NOTE | 2020-10-04 09:43 | PM.EVENT ---
Event Note Date of Service: 10/04/20 Event Note: GI consult dictated CBD stones are present on imaging LFTs show no biliary obstruction He has chronic abdominal discomfort but no signs or symptoms of cholangitis or cholecystitis After discussion, he wishes to be discharged and have elective ERCP next week. My office will arrange this. He is advised to return emergently if he has fevers, chills, jaundice or other symptoms regarding cholangitis or pancreatitis.
--- NOTE | 2020-10-04 10:01 | P.DS_ITS ---
DS: Providers Provider Date of Service: 10/14/20 Date of admission: 10/03/20 17:00 Primary care physician: None Physician Consults: 10/03/20 14:07 Consult to Gastroenterology Stat Consulting Provider: Connor Chang Reason for consultation: choledocholithiaiss Has provider been notified: Yes Consult to General Surgery Stat Consulting Provider: Yolette Oneill Reason for consultation: CBD stone with ?acute cholecystitis Has provider been notified: Yes DS: Diagnosis Discharge Diagnosis (1) Diffuse abdominal pain: Status: Resolved (2) Choledocholithiasis: Status: Acute DS: Medications Discharge Medications Home Medications: Home Medications Medication Instructions Recorded Confirmed duloxetine 60 mg capsule,delayed 60 mg PO BEDTIME 09/10/20 10/03/20 release Previous Rx's Medication Instructions Recorded levofloxacin 750 mg PO DAILY 7 Days #7 tab 10/04/20 oxycodone 5 mg PO Q6H PRN #20 tab 10/04/20 DS: Summary Hospital Course Hospital Course: Chief Complaint: Abdominal pain 54-year-old male with history of abdominal pain and has been evaluated by surgery on outpatient basis on around September [address] Dempsey in the office a CAT scan of the abdomen was performed at a time and I thought that the patient had a biliary disease and an ultrasound was subsequently arranged. Patient had ultrasound done on October 02 which showed a dilated common bile duct and the finding consistent with acute choledocholithiasis, and report of posiitive Coley but has no fever, no increase in WBC. He was advised admission however he left AMA. Only to come back today with increasing abdominal pain that is moderate to severe, generally in region of RUQ . He does not have fever or chill no signs of cholangitis. He had he has been admitted for further evaluation including the need for ERCP and probable cholecystectomy. He is nontoxic at this time Hospital course: Patient was admitted overnight, his pain is generally controlled. He doens't have fever, nausea or vomitting. He has been evaluated by Dr. Chang and does't think he need emergent ERCP and given option to have this done on Tuesday or to have arrange next as outpatient, he wants to go home and have it done later. He clearly understand that this is condition that can worsen and is told to watch for signs of cholangitis including, but not limitted to, fever, nausea, incresing abdominal pain, jaundice, confusion and to call 911 with any of these or come to emergency department.' Time Spent with Patient Time attestation: Total time spent providing and/or coordinating discharge services: Discharge coordination time: Greater than 30 minutes Physical Exam Vital Signs: Vital Signs: Last Vital Signs Temp 96.9 F 10/04/20 07:44 Pulse 71 10/04/20 07:44 Resp 18 10/04/20 07:44 BP 181/91 H 10/04/20 07:44 Pulse Ox 96 10/04/20 07:44 Body Mass Index 26.6 General: AO X 3, no acute distress Resp: CTA bilateral CVS: S1,S2,RRR GI: +BS, NT, no distention Skin: No rash Neuro: motor grossly intact Psych: appropriate affect DS: Data Data Completed and Pending Labs on day of discharge: Laboratory Results - last 24 hr 10/03/20 10/03/20 10/03/20 13:02 13:02 13:02 WBC 7.5 RBC 4.80 Hgb 14.5 Hct 41.2 L MCV 85.8 MCH 30.2 MCHC 35.2 RDW 13.8 Plt Count 220 MPV 9.5 Immature Gran % (Auto) 0.3 Neut % (Auto) 75.9 H Lymph % (Auto) 16.6 L [place] % (Auto) 5.1 Eos % (Auto) 1.6 Baso % (Auto) 0.5 Lymph # (Auto) 1.2 [place] # (Auto) 0.4 Eos # (Auto) 0.1 Baso # (Auto) 0.0 Abs Immat Gran (auto) 0.02 Absolute Neuts (auto) 5.7 Absolute Nucleated RBC 0.000 Nucleated RBC % (auto) 0.0 PT 12.5 INR 1.1 APTT 35.7 Sodium 136 Potassium 4.4 Chloride 103 Carbon Dioxide 24 Anion Gap 13 BUN 19 H Creatinine 0.94 Estim Creat Clear Calc 86.9 Estimated GFR > 60 Random Glucose 115 Lactic Acid Calcium 10.3 H Magnesium 2.1 Total Bilirubin 1.0 Direct Bilirubin 0.3 AST 98 H ALT 147 H Alkaline Phosphatase 250 H Total Protein 7.7 Albumin 4.1 Lipase 11 Urine Color Urine Appearance Urine pH Ur Specific [place] Urine Protein Urine Glucose (UA) Urine Ketones Urine Blood Urine Nitrite Ur Leukocyte Esterase COVID-19 ([facility]) COVID-19 Clin Com 10/03/20 10/03/20 10/03/20 13:02 13:02 16:33 WBC RBC Hgb Hct MCV MCH MCHC RDW Plt Count MPV Immature Gran % (Auto) Neut % (Auto) Lymph % (Auto) [place] % (Auto) Eos % (Auto) Baso % (Auto) Lymph # (Auto) [place] # (Auto) Eos # (Auto) Baso # (Auto) Abs Immat Gran (auto) Absolute Neuts (auto) Absolute Nucleated RBC Nucleated RBC % (auto) PT INR APTT Sodium Potassium Chloride Carbon Dioxide Anion Gap BUN Creatinine Estim Creat Clear Calc Estimated GFR Random Glucose Lactic Acid 0.8 Calcium Magnesium Total Bilirubin Direct Bilirubin AST ALT Alkaline Phosphatase Total Protein Albumin Lipase Urine Color YELLOW Urine Appearance CLEAR Urine pH 6.[address] [place] 1.015 Urine Protein NEG Urine Glucose (UA) NEG Urine Ketones NEG Urine Blood NEG Urine Nitrite NEG Ur Leukocyte Esterase NEG COVID-19 ([facility]) Negative COVID-19 Clin Com See Note Discharge Plan Discharge Anticipated Discharge Date/Time: 10/04/20 09:51 Patient Disposition: Home, Self-Care Discharge Diagnosis: Cholechodolithiasis Referrals: Physician,None [Primary Care Provider] - 1 Week Discharge Medications: New levofloxacin 750 mg tablet 750 mg PO DAILY 7 Days Qty: 7 RF: 0 oxycodone 5 mg tablet 5 mg PO Q6H PRN (Reason: pain (scale score 7-10)) Qty: 20 RF: 0 Continued duloxetine 60 mg capsule,delayed release(DR/EC) 60 mg PO BEDTIME RF: 0 Discharge Orders: Discharge Order (Routine); Ordered 10/04/20 Ordered By: Ramesh Pierre Diet: advance to usual diet Activity on Discharge: As tolerated Stand Alone Forms: Patient Portal Discharge page Care Plan Goals: Ultimately to have ERCP and gallbladder removal Health Concerns: Choledocholithiasis Plan of Treatment: Outpatient follow-up for ERCP and cholecystectomy. Dr. Chang's office will call you on Tuesday to arrange for ERCP, please report to emergency or call 911 wth increasing abdominal pain, fever, nausea vomitting, jaundice with (yellow sclera of eye and skin). Do not drink alcohol, don't tyelenol. Take Levaquin as directed. Take Oxycodone as needed for pain Assessment: Gallstones Discharge Date/Time: 10/04/20 12:00
--- NOTE | 2020-10-04 10:33 | CONS_ITS ---
DATE OF SERVICE: 10/04/2020 REFERRING PHYSICIAN: Ramesh Pierre MD REASON FOR CONSULTATION: Common bile duct stones. HISTORY OF PRESENT ILLNESS: The patient is a 54-year-old male, seen today in consultation because of common bile duct stones. He reports that his stomach has been swollen for months. Over this time period, he has had a weight gain of 10 to 15 pounds. He has had hernia repairs in the past including bilateral inguinal hernia repairs and umbilical hernia repairs. Over this time period, he had some pain in his groin on the right side, which has been intermittent over about a year. Associated with this, he has had sweats for 6 months intermittently. There has been no nausea, vomiting, or diarrhea. There has been shortness of breath, which has been stable. Because of his symptoms, he was evaluated in the General Surgery Clinic a few weeks ago. He underwent a CT scan and ultrasound imaging. Ultrasound imaging was done earlier this week, which showed gallstones and common bile duct stones. He was referred to the emergency room. He was evaluated in the emergency department, but left against medical advice night. He returned to the emergency room on Tuesday with similar complaints to his previous complaints. Liver function tests were mildly elevated, but were stable. He had no fevers or chills and was not jaundiced. He was admitted to the hospital. He was seen in consultation by Dr. Oneill, who recommended elective cholecystectomy following removal of his common bile duct stones. He is evaluated today for ERCP. Since admission, he has been afebrile. Vital signs have been stable. There has been no nausea or vomiting. PAST MEDICAL HISTORY: 1. Inguinal and umbilical hernia repairs. 2. HIV infection. The patient states this has been a chronic issue for 30 years and he follows with Dr. Nunn in [place]. He is on anti-retroviral therapy, but is unable to give the name of the medication. He states he has been compliant with this and has been undetectable in terms of viral load. He believes this was acquired via sexual transmission. 3. Anxiety. 4. Back pain, status post fusion. 5. Sciatica. 6. Multiple orthopedic surgeries. CURRENT MEDICATIONS: His current medication list is reviewed in the chart. ALLERGIES: INCLUDE SULFA. FAMILY HISTORY: This is reviewed with the patient and is noncontributory. SOCIAL HISTORY: He does smoke 1/2 pack per day. He denies alcohol use. He does use marijuana. He denies other drug use including heroin and cocaine. REVIEW OF SYSTEMS: SKIN: No pruritus. HEENT: Negative. CARDIOPULMONARY: No shortness of breath currently. He does have complaints of chronic shortness of breath. No chest pain. GASTROINTESTINAL: As above. GENITOURINARY: Negative. NEUROPSYCHIATRIC: Negative. PHYSICAL EXAMINATION: GENERAL: Reveals a well-appearing male, who is unable to sit still. VITAL SIGNS: Reviewed in electronic medical record and are stable. SKIN: Anicteric. HEENT: Shows no scleral icterus. NECK: Without lymphadenopathy or thyromegaly. LUNGS: Clear. HEART: Shows regular rate and rhythm. S1, S2. No murmur. ABDOMEN: Soft. Bowel sounds are present. Surgical scars are present from his prior surgery. There is no guarding, tenderness, or rebound. Right upper quadrant is benign. EXTREMITIES: Show 1 mm pretibial pitting edema. LABORATORY DATA: Including CT scan, ultrasound, and present laboratory studies are reviewed. IMPRESSION: Common bile duct stones. At this time, he is basically asymptomatic from the stones. He has no signs of cholangitis and should have ERCP for removal of his common duct stones. This could be arranged for Tuesday as an inpatient, or scheduled as an outpatient for next week. After discussion, he agreed to be discharged and follow up as an outpatient for elective ERCP next week. I discussed risks and benefits of the procedure with him. He understands these and agrees to proceed. As he has no signs of cholangitis, I do not recommend antibiotics at this time. This was discussed with the patient's nurse and with Dr. Pierre. My office will contact him early next week to set up the procedure. He was advised to return to the hospital immediately should he have any signs of cholangitis including fevers, chills, nausea, vomiting, or jaundice. MD TANNA Terrell/MAGDALENE / [id number] MTDD
--- NOTE | 2020-10-04 11:10 | MHC.CM.PN ---
EMR REVIEWED, PT ADMITTED W/CHOLEYCYSTITIS AND CHOLEDOCHOLITHIASIS, CM MET W/PT WHO REPORTS HE WORKS A [employer], LIVES ALONE, DENIES USE OF DME AND NO HOME SERVICES. PT REPORTS HE HAS NO PCP AT THIS TIME, PT DECLINED ASSISTANCE AND INFORMATIONAL PHAMPHLET STATING, DR. ARCE IS GOING TO HELP ME PT DENIES ANY CONCERNS OTHER THAN PAIN AND BEING ABLE TO TOLERATE STANDING FOR LONG PERIODS, PT DISCHARGING W/ABX AND OXYCODONE FOR PAIN AND DR. CHRISTIANSON OFFICE WILL BE CALLING TO SCHEDULE AN ERCP ON Tuesday10/06/20. PT D/C PLAN: HOME SELF-CARE, SO TO TRANSPORT PT DENIES HAVING HCP AND DECLINES ASSISTANCE AT THIS TIME.
[2020-10-04 12:24] LABS: Alanine Aminotransferase 102 U/L (0-40); Albumin Level 4.1 g/dL (3.5-5.0); Alkaline Phosphatase 209 U/L (39-117); Aspartate Amino Transferase 48 U/L (5-37); Bilirubin Direct 0.4 mg/dL (0.0-0.5); Bilirubin Total 1.1 mg/dL (0.0-1.0); Total Protein 7.4 g/dL (6.5-8.0)
== END 2020-10-04 12:00 | disposition home or self-care (01) ==
LOC: HO.ED 14:02 → HO.EDOVER 17:32 → HO.S3 19:23
PROVIDERS: Physician Assistant; Admitting Provider Internal Medicine; Emergency Provider Emergency Medicine; Visit Provider Internal Medicine
DX: K80.20 Calculus of gallbladder without cholecystitis without obstruction (principal); F17.210 Nicotine dependence, cigarettes, uncomplicated; F41.9 Anxiety disorder, unspecified; Z20.822 Contact with and (suspected) exposure to COVID-19; Z88.2 Allergy status to sulfonamides; Z71.6 Tobacco abuse counseling; Z98.1 Arthrodesis status; Z21 Asymptomatic human immunodeficiency virus [HIV] infection status; Z79.899 Other long term (current) drug therapy
CPT/HCPCS: 36415; 80048; 80076; 81003; 83605; 83690; 83735; 85025; 85610; 85730; 87040; 87635; 93005; 96365; 96375; 99218; 99285; J1170; J1650; J1956; J2543

== ENCOUNTER 2020-10-07 12:22 | Day surgery (SDC) | payer OTHER, SELFPAY ==
--- NOTE | ~2020-10-07 | FL_ITS ---
EXAMINATION: Intraoperative fluoroscopy CLINICAL INFORMATION: ERCP COMPARISON: CT abdomen pelvis September 23, 2020 TECHNIQUE: Intraoperative fluoroscopy was provided for use by Dr. Chang. A total of 8 images were saved to PACS. A radiologist was not present during imaging. Today's dictation is only for administrative purposes to document intraoperative fluoroscopic usage. TOTAL FLUOROSCOPIC TIME: 8 minutes and 50 seconds FL/FL guidance in OR FINDINGS~\^^ Intraoperative fluoroscopy provided for use by Dr. Chang. Please see operative note for detailed findings.
--- NOTE | 2020-10-07 12:16 | MHC.SHP ---
Pre-Procedural Eval Section A The patient is an INPATIENT: No Changes since office visit: No Cold of Flu in the past 2 weeks, No New Medical Problems, No Changes in Medication and No Patient answered all questions The History & Physical has been completed within 30 days and I have reviewed it.: Yes Section B Chief Complaint: calculus of bile duct Allergies: Allergies Allergy/AdvReac Type Severity Reaction Status Date / Time Sulfa (Sulfonamide Allergy Unknown Itching Unverified 10/03/20 17:02 Antibiotics) sulfamethoxazole Allergy Unknown ITCHING Unverified 10/03/20 17:02 [From BACTRIM] trimethoprim [From BACTRIM] Allergy Unknown ITCHING Unverified 10/03/20 17:02 Plan I have reviewed the history and physical and performed a pertinent physical examination on my patient. No changes have occurred unless specified.
[2020-10-07 12:41] VITALS: BMI 26.6
[2020-10-07 12:50] VITALS: BP 146/92; PULSE 83; RESP 16; TEMP 36.3; O2SAT 97
--- NOTE | 2020-10-07 13:04 | HO.ANESPROP2 ---
HPI - Anesthesia Eval Consult details Narrative: 54 yo male patient here for ERCP PMFSH Active Problems Active Problems: All Active Problems (Updated 10/03/20 @ 17:00 by Yolette Oneill MD) Choledocholithiasis (Acute) Cholelithiasis (Acute) Choledocholithiasis with acute cholecystitis (Acute) Cholecystitis (Acute) Abdominal distension (Acute) Diffuse abdominal pain (Acute) Past Medical History Medical History Anxiety Arthritis Chronic back pain HIV (human immunodeficiency virus infection) Insomnia Sciatica Family History Family History Mother Lung cancer Father Colon cancer Brother No problems noted. Family history of problems with anesthesia: No Surgical History Surgical History H/O bilateral inguinal hernia repair H/O shoulder surgery H/O umbilical hernia repair History of lumbar fusion History of surgery on arm History of Problems with Anesthesia: No Social History Social History (Updated 10/07/20 @ 13:16 by Tami Underwood) Household Members: Significant Other Housing: House Alcohol intake: never Smoking Status: Current every day smoker Tobacco Type: Cigarette Packs Per Day: 0.5 Years Smoked: 35 Smoked in Last 30 Days: Yes Second Hand Smoke Exposure: No Use of substances other than those prescribed or required for medical reasons: Yes Substance Use Type: Heroin and Marijuana Last Used Substance: Just Prior to Admission Currently Displaying Signs/Symptoms of Drug Intoxication Withdrawal: No Advance Directives: No Advance Directives Information Provided: Yes Advance Directives Date on File: 10/03/20 Recently lost weight without trying: No service: No Current occupational status: employed Meds Allergies Allergy/AdvReac Type Severity Reaction Status Date / Time Sulfa (Sulfonamide Allergy Unknown Itching Verified 10/07/20 12:49 Antibiotics) sulfamethoxazole Allergy Unknown ITCHING Verified 10/07/20 12:49 [From BACTRIM] trimethoprim [From BACTRIM] Allergy Unknown ITCHING Verified 10/07/20 12:49 Active Medications: Current Medications Generic Name Dose Route Start Last Admin Trade Name Freq PRN Reason Stop Dose Admin Levofloxacin 500 mg in 100 mls @ 100 mls/hr 10/07/20 12:14 Levaquin IV 10/07/20 13:13 PREOP ONE Home Medications Medication Instructions Recorded Confirmed Last Taken Type duloxetine 60 mg capsule,delayed 60 mg PO BEDTIME 09/10/20 10/03/20 Unknown History release Exam Exam Date and Time: October 07, 2020 1304 Height,Weight and Vital Signs: Height 5 ft 8 in Weight 79.379 kg Last Vital Signs Temp 97.4 F 10/07/20 12:50 Pulse 83 10/07/20 12:50 Resp 16 10/07/20 12:50 BP 146/92 H 10/07/20 12:50 Pulse Ox 97 10/07/20 12:50 Airway Mallampati Class: II TM Dist: >3cm Neck ROM: Full Loose/Missing/Broken Teeth: Yes (Many missing) Heart: RRR Lungs: CTAB Assessment and Plan Assessment Anesthesia Assessment: Anesthesia Plan Discussed and Chart Reviewed Final Anesthetic Review NPO: Yes ASA Class: III Final Preanesthetic Review: No Changes in Pt Med Stat, Meds/Allgs Chart Reviewed, Consent Obtained/Reviewed and Anes Risks/Benef Reviewed Patient Risk: Intermediate Procedure Risk: Intermediate Assessment/Block/Sedation in SS: Assess/Block/Sedation-SS Anesthetic Plan Anesthetic Plan: GA Disposition: Standard PACU
[2020-10-07] MEDS: Lactated Ringers 1,000 ML 100 ML IVCONT (13:07)
[2020-10-07] MEDS: levoFLOXacin/D5W 500 MG/100 ML PIGGYBACK 100 MG IV (13:08)
[2020-10-07 15:05] VITALS: BP 99/53; PULSE 69; RESP 14; TEMP 36.1; O2SAT 97
--- NOTE | 2020-10-07 15:06 | PM.OP ---
Brief Operative Note Date of Service: 10/07/20 Pre-op diagnosis: CBD stones Post-op diagnosis: same Procedure: ERCP Surgeon: Connor Chang Anesthesia: MAC Estimated blood loss (mL): 5 Pathology: none sent Condition: stable Disposition: PACU
[2020-10-07 15:10] VITALS: BP 113/63; PULSE 64; RESP 16; O2SAT 99
[2020-10-07 15:15] VITALS: BP 112/72; PULSE 63; RESP 16; O2SAT 100
[2020-10-07 15:20] VITALS: BP 142/86; PULSE 62; RESP 16; O2SAT 100
[2020-10-07 15:41] VITALS: BP 115/71; PULSE 77; RESP 16; O2SAT 97
--- NOTE | 2020-10-07 23:36 | OP_ITS ---
SURGEON: Connor Chang MD INDICATIONS: Common bile duct stones seen on imaging. PREOPERATIVE DIAGNOSIS: POSTOPERATIVE DIAGNOSIS: PROCEDURE PERFORMED: ERCP with sphincterotomy and extraction of common bile duct stones. ESTIMATED BLOOD LOSS: COMPLICATIONS: ANESTHESIA: ASSISTANTS: SPECIMENS: MEDICATIONS: General anesthesia. DESCRIPTION OF PROCEDURE: History and physical performed. The risks and benefits of the procedure were explained to the patient. Informed consent was obtained and the patient was placed in the prone position with a wedge under the right shoulder. The Olympus therapeutic duodenoscope was introduced into the esophagus, stomach, and duodenum. Examination was performed and the scope was removed. He tolerated the procedure well and was returned to the recovery area in stable condition. FINDINGS: ENDOSCOPY: Limited examination of the esophagus, stomach, and duodenum was within normal limits. The major papilla was normal and clear yellow bile was seen to be present in the duodenum. A sphincterotome with a guidewire was used to cannulate the common bile duct. Injection of contrast and cholangiography showed 3 definite filling defects consistent with the stone seen on previous imaging. A sphincterotomy was performed to about 10 mm with no immediate complications. Next, a 12 mm extraction balloon was used to sweep the duct multiple times with extraction of 3 black common bile duct stones. Occlusion cholangiography showed no further stones and there was excellent drainage of clear yellow bile from the sphincterotomy site. The cystic duct was seen to fill and filling defects were identified consistent with stones in the gallbladder. No pancreatogram was attempted or obtained. The guidewire did enter the pancreatic duct multiple times judging by fluoroscopic imaging. IMPRESSION: Common bile duct stones. RECOMMENDATIONS: 1. Discharge when stable. 2. Follow up with General Surgery for elective cholecystectomy. MD TANNA Terrell/MAGDALENE / [id number] [facility]IT[facility]is[facility]
== END 2020-10-07 15:55 | disposition home or self-care (01) ==
PROVIDERS: Visit Provider Internal Medicine Gastroenterology
PROC: (CPT 43260; principal; 2020-10-07 13:40)
DX: K80.50 Calculus of bile duct without cholangitis or cholecystitis without obstruction (principal); B20 Human immunodeficiency virus [HIV] disease; Z79.899 Other long term (current) drug therapy; F17.210 Nicotine dependence, cigarettes, uncomplicated; F12.90 Cannabis use, unspecified, uncomplicated
CPT/HCPCS: 43262; 43264; C1769; J0330; J1100; J1610; J1956; J2250; J2370; J2405; J3010; Q9967

== ENCOUNTER 2020-10-20 06:23 | Day surgery (SDC) | payer OTHER, SELFPAY ==
--- NOTE | 2020-10-16 11:46 | P.CONAN_ITS ---
Documented by User: Joi Heller 10/16/20 11:48 HPI - Anesthesia Eval Consult details Narrative: 54 yo M for Cholecystectomy Laparoscopic, Poss Open s/p ERCP with [facility] 7 10/07/20 [facility] Active Problems Active Problems: All Active Problems (Updated 10/15/20 @ 00:01 by Calli Ordonez) Cholecystitis (Acute) Abdominal distension (Acute) Past Medical History Medical History (Updated 10/20/20 @ 07:38 by Tami Underwood) Anxiety Arthritis Chronic back pain HIV (human immunodeficiency virus infection) Insomnia Sciatica Family History Family History Mother Lung cancer Father Colon cancer Brother No problems noted. Family history of problems with anesthesia: No Surgical History Surgical History H/O bilateral inguinal hernia repair H/O shoulder surgery H/O umbilical hernia repair History of lumbar fusion History of surgery on arm History of Problems with Anesthesia: No Social History Social History (Updated 10/20/20 @ 07:36 by Tami Underwood) Household Members: Significant Other Housing: House Alcohol intake: never Smoking Status: Current every day smoker Tobacco Type: Cigarette Packs Per Day: 0.5 Cigarettes Per Day: 10 Years Smoked: 45 Smoked in Last 30 Days: Yes Second Hand Smoke Exposure: No Use of substances other than those prescribed or required for medical reasons: Yes Substance Use Type: Heroin and Marijuana Substance Use Frequency: Daily Last Used Substance: Just Prior to Admission Currently Displaying Signs/Symptoms of Drug Intoxication Withdrawal: No Are you DNR?: No Advance Directives: Yes Advance Directives on File: Yes Advance Directives Date on File: 10/03/20 service: No Current occupational status: employed Meds Allergies Allergy/AdvReac Type Severity Reaction Status Date / Time Sulfa (Sulfonamide Allergy Unknown Itching Verified 10/07/20 12:49 Antibiotics) sulfamethoxazole Allergy Unknown ITCHING Verified 10/07/20 12:49 [From BACTRIM] trimethoprim [From BACTRIM] Allergy Unknown ITCHING Verified 10/07/20 12:49 Home Medications Medication Instructions Recorded Confirmed Last Taken Type duloxetine 60 mg capsule,delayed 60 mg PO BEDTIME 09/10/20 10/03/20 Unknown History release Exam Exam Date and Time: October 16, 2020 1146 Narrative Narrative: EKG 09/2020 Vent. Rate : 067 BPM Atrial Rate : 067 BPM P-R Int : 154 ms QRS Dur : 096 ms QT Int : 416 ms P-R-T Axes : 047 060 050 degrees QTc Int : 439 ms Normal sinus rhythm Normal ECG No previous ECGs available Assessment and Plan Assessment Anesthesia Assessment: Chart Reviewed Documented by User: Tami Underwood 10/20/20 07:40 [facility] Past Medical History Medical History (Updated 10/20/20 @ 07:38 by Tami Underwood) Anxiety Arthritis Chronic back pain HIV (human immunodeficiency virus infection) Insomnia Sciatica Family History Family History Mother Lung cancer Father Colon cancer Brother No problems noted. Surgical History Surgical History H/O bilateral inguinal hernia repair H/O shoulder surgery H/O umbilical hernia repair History of lumbar fusion History of surgery on arm Social History Social History (Updated 10/20/20 @ 07:36 by Tami Underwood) Household Members: Significant Other Housing: House Alcohol intake: never Smoking Status: Current every day smoker Tobacco Type: Cigarette Packs Per Day: 0.5 Cigarettes Per Day: 10 Years Smoked: 45 Smoked in Last 30 Days: Yes Second Hand Smoke Exposure: No Use of substances other than those prescribed or required for medical reasons: Yes Substance Use Type: Heroin and Marijuana Substance Use Frequency: Daily Last Used Substance: Just Prior to Admission Currently Displaying Signs/Symptoms of Drug Intoxication Withdrawal: No Are you DNR?: No Advance Directives: Yes Advance Directives on File: Yes Advance Directives Date on File: 10/03/20 service: No Current occupational status: employed Meds Allergies Allergy/AdvReac Type Severity Reaction Status Date / Time Sulfa (Sulfonamide Allergy Unknown Itching Verified 10/07/20 12:49 Antibiotics) sulfamethoxazole Allergy Unknown ITCHING Verified 10/07/20 12:49 [From BACTRIM] trimethoprim [From BACTRIM] Allergy Unknown ITCHING Verified 10/07/20 12:49 Home Medications Medication Instructions Recorded Confirmed Last Taken Type duloxetine 60 mg capsule,delayed 60 mg PO BEDTIME 09/10/20 10/03/20 Unknown History release Exam Height,Weight and Vital Signs: Vital Signs Temp Pulse Resp BP Pulse Ox 10/20/20 06:47 97.3 F 80 16 159/95 H 96 Airway Mallampati Class: II TM Dist: >3cm Neck ROM: Full Loose/Missing/Broken Teeth: Yes (Many missing) Heart: RRR Lungs: CTAB Assessment and Plan Assessment Anesthesia Assessment: Anesthesia Plan Discussed and Chart Reviewed Final Anesthetic Review NPO: Yes ASA Class: III Final Preanesthetic Review: No Changes in Pt Med Stat, Meds/Allgs Chart Reviewed, Consent Obtained/Reviewed and Anes Risks/Benef Reviewed Patient Risk: Intermediate Procedure Risk: Intermediate Assessment/Block/Sedation in SS: Assess/Block/Sedation-SS Anesthetic Plan Anesthetic Plan: GA Disposition: Standard PACU
[2020-10-20] VITALS (10 sets, daily range): BP systolic 148–189; BP diastolic 95–106; PULSE 68–80; RESP 14–18; TEMP 36.3–36.9; O2SAT 93–99; BMI 28.1
[2020-10-20] MEDS: Acetaminophen 325 MG TABLET 650 MG PO (06:43)
[2020-10-20] MEDS: Lactated Ringers 1,000 ML 100 ML IVCONT (07:13)
--- NOTE | 2020-10-20 09:26 | P.OP_ITS ---
Operative Note Operative Note Date of Service: 10/20/20 Narrative: Preoperative diagnosis: Cholelithiasis, choleducholithiasis Postoperative diagnosis: Same Procedure: Laparoscopic cholecystectomy Surgeon: Regan Dempsey MD Director Of Retail Marketing: KARINA Forbes-student Anesthesia: General endotracheal Indications for procedure:54 year old male patien with complaints of abdominal pain found to have choleducholithiasis, s/p ERCP with sphincterotomy and stone removal no presenting Operative findings: Specimen: Estimated blood loss: Complications: Procedure details: Patient was brought to the OR and placed in a supine position. After administering general anesthesia the patient's abdomen was prepped with ChloraPrep and draped in a sterile fashion. Local anesthesia consisting of 0.5% Sensorcaine with epinephrine was infiltrated in a periumbilical region. A 5 mm incision was made above the umbilicus in a transverse fashion. The Veress needle was then inserted while elevating abdominal cavity with towel clips. After positive drop test the abdomen was insufflated to a pressure of 15 mm of mercury. The Veress needle was then removed and a 5 mm trocar inserted. The camera was inserted in the abdomen explored. A 12 mm trocar was then placed in the epigastrium and 2 x 5 mm trocars placed in the right upper quadrant. The patient was placed in reverse Trendelenburg positioning and rotated to the left. The gallbladder was grasped with the fundus and retracted cephalad.. The infundibulum Was then grasped and retracted away from the liver bed. The Dolphin dissected was then used to dissect the peritoneum off the infundibulum to reveal the junction with the cystic duct. Cystic artery was noted slightly medial and posterior to the cystic duct. After obtaining a critical view the cystic duct was doubly clipped and divided. The cystic artery was then doubly clipped and divided. The gallbladder was then dissected off the liver bed using electrocautery with an L hook. Hemostasis was assured all times using the electrocautery. When the gallbladder is completely dissected off the liver bed was placed in an Endo- Catch bag and brought out through the epigastric incision. The gallbladder was sent to pathology for further examination. The abdomen was then re-examined. The liver bed was irrigated and suctioned dry. No bleeding or bile leak could be identified. CO2 was then evacuated and all trocars removed. Fascia was closed at the epigastric incision using a [id number] 0 Polysorb suture. Skin was closed in all incisions using a subcuticular 4 0 Polysorb suture. Sterile dressings consisting of Steri-Strips, 2 x 2 gauze, and Tegaderm were then applied. The patient tolerated the procedure well. Sponge instrument and needle counts reported as correct. The patient was transferred to PACU in stable condition.
--- NOTE | 2020-10-20 09:31 | MHC.SHP ---
Pre-Procedural Eval Section A The patient is an INPATIENT: No Changes since office visit: No Cold of Flu in the past 2 weeks, No New Medical Problems, No Changes in Medication and No Patient answered all questions The History & Physical has been completed within 30 days and I have reviewed it.: Yes Section B Chief Complaint: Calculus of gallbladder without cholecystitis Allergies: Allergies Allergy/AdvReac Type Severity Reaction Status Date / Time Sulfa (Sulfonamide Allergy Unknown Itching Verified 10/07/20 12:49 Antibiotics) sulfamethoxazole Allergy Unknown ITCHING Verified 10/07/20 12:49 [From BACTRIM] trimethoprim [From BACTRIM] Allergy Unknown ITCHING Verified 10/07/20 12:49 Plan Diagnosis/Plan: Unchanged I have reviewed the history and physical and performed a pertinent physical examination on my patient. No changes have occurred unless specified.
[2020-10-20] MEDS: oxyCODONE HCl Immed Release 5 MG TABLET PO (10:42)
== END 2020-10-20 11:54 | disposition home or self-care (01) ==
PROVIDERS: Visit Provider Surgery
PROC: 0FT44ZZ Resection of Gallbladder, Percutaneous Endoscopic Approach (ICD-10-PCS; CPT 47562; principal; 2020-10-20 07:30)
DX: K80.64 Calculus of gallbladder and bile duct with chronic cholecystitis without obstruction (principal); B20 Human immunodeficiency virus [HIV] disease; M54.9 Dorsalgia, unspecified; G89.29 Other chronic pain; Z79.899 Other long term (current) drug therapy; F17.210 Nicotine dependence, cigarettes, uncomplicated; F11.90 Opioid use, unspecified, uncomplicated; F12.90 Cannabis use, unspecified, uncomplicated; Z88.2 Allergy status to sulfonamides
CPT/HCPCS: 47562; 88304; J0330; J1100; J2250; J2405; J2765; J3010

== ENCOUNTER → 2020-10-28 10:09 | Outpatient (BNVA) | payer OTHER, SELFPAY | PROVIDERS: Visit Provider Surgery | DX: Z48.815 Encounter for surgical aftercare following surgery on the digestive system (principal); Z87.19 Personal history of other diseases of the digestive system; Z90.49 Acquired absence of other specified parts of digestive tract | CPT/HCPCS: 99212 ==